=== PATIENT | female | born 1955 | race Caucasian/White ===

== ENCOUNTER → 2016-08-04 09:23 | Outpatient (CLI) | payer BC | END | disposition home or self-care (01) | LOC: D.RT 09:23 | DX: J44.9 Chronic obstructive pulmonary disease, unspecified (principal) ==

== ENCOUNTER → 2016-08-28 12:52 | Outpatient (CLI) | payer BC ==
[2016-08-28 14:11] LABS: CREATININE - SERUM 0.7 mg/dL (0.6-1.3)
== END | disposition home or self-care (01) ==
LOC: D.CT 08-21 08:30 → D.US 08-21 14:00 → D.LAB 08-21 15:45 → D.CT 12:52
PROVIDERS: Internal Medicine Pulmonary Disease
DX: R06.00 Dyspnea, unspecified (principal)

== ENCOUNTER 2018-05-06 08:00 | Outpatient (CLI) | payer BC | END 2018-05-06 09:00 | disposition home or self-care (01) | LOC: D.MAMMO 08:00 | DX: Z12.31 Encounter for screening mammogram for malignant neoplasm of breast (principal) ==

== ENCOUNTER → 2018-06-05 19:24 | Outpatient (CLI) | payer BC | END | disposition home or self-care (01) | LOC: D.MAMMO 15:00 | DX: R92.8 Other abnormal and inconclusive findings on diagnostic imaging of breast (principal) ==

== ENCOUNTER → 2018-12-11 20:28 | Outpatient (CLI) | payer BC | END | disposition home or self-care (01) | LOC: D.MAMMO 12-02 09:00 | PROVIDERS: ATTEND Family Medicine | DX: R92.8 Other abnormal and inconclusive findings on diagnostic imaging of breast (principal) ==

== ENCOUNTER → 2020-09-15 15:41 | Outpatient (CLI) | payer BC | END | disposition home or self-care (01) | LOC: D.MAMMO 10:15 | PROVIDERS: ATTEND Family Medicine | DX: Z12.31 Encounter for screening mammogram for malignant neoplasm of breast (principal) ==

== ENCOUNTER 2020-10-17 16:08 | Inpatient (IN) | payer BC ==
[~2020-10-17] VITALS: Ht 160 cm; Wt 70.3 kg
[2020-10-17] VITALS (29 sets, daily range): BP systolic 64–127; BP diastolic 37–95; BMI 29.7
[2020-10-17] MEDS ORDERED: GLUCOPHAGE500 MG PO ×2 (16:23→16:24)
[2020-10-17] MEDS ORDERED: GLIMEPIRIDE1 MG PO (16:24)
[2020-10-17] MEDS ORDERED: FARXIGA10 MG PO (16:24)
[2020-10-17] MEDS ORDERED: NORVASC10 MG PO (16:25)
[2020-10-17] MEDS ORDERED: GLIMEPIRIDE4 MG PO (16:26)
[2020-10-17 16:44] LABS: BASOPHILS 0.1 % (0-2); EOSINOPHILS 0 % (0-7); HEMATOCRIT 25.5 % (36.0-48.0); HEMOGLOBIN 7.8 g/dL (12-16); IMMATURE GRANULOCYTES 0.6 % (0-5); LYMPHOCYTE ABS# 1.29 10x3/uL (1.18-3.74); LYMPHOCYTES 14.3 % (15-50); MCH 28.3 pg (26.0-34.0); MCHC 30.6 g/dL (31.0-37.0); MCV 92.4 fL (80.0-100.0); MEAN PLATELET VOLUME 11.8 fL (7.4-10.4); NEUTROPHIL ABS# 7.58 10x3/uL (1.56-6.13); PLATELET COUNT 155 10x3/uL (130-400); RBC 2.76 10x6/uL (4.00-5.40); RDW 16.7 % (11.5-14.5)
[2020-10-17 16:54] LABS: APTT 32.1 SECONDS (22.8-39.4); INR 1.69 (0.85-1.17); PROTIME 18.5 SECONDS (11.6-15.0)
[2020-10-17 16:55] LABS: ANION GAP 28.7 mmol/L (8-16); CALCIUM 9.2 mg/dL (8.5-10.1); CARBON DIOXIDE 13.2 mmol/L (21.0-32.0); POTASSIUM - SERUM 4.9 mmol/L (3.5-5.1)
[2020-10-17 17:04] LABS: ALBUMIN 2.3 g/dL (3.4-5.0); BILIRUBIN - TOTAL 1.18 mg/dL (0.2-1.3); PROTEIN - SERUM 5.9 g/dL (6.4-8.2); TROPONIN-I 0.047 ng/mL (0.000-0.060)
--- NOTE | 2020-10-17 18:14 | NUR ---
REPORT GIVE TO GASPER EUBANKS WITH VERBAL ACKNOWLEDGEMENT OBTAINED AT THIS TIME.
--- NOTE | 2020-10-17 18:22 | NUR ---
LATE ENTRY: PT WITHIN 15 MIN OF ARRIVAL VOMITING DARK RED BLOOD 500ML. MD MADE NOTIFIED AN ORDERS WERE PLACED. LATE ENTRY: PT VOMITED A SECOND TIME AN DPUKED 200ML OF DARK RED BLOOD. MD AWARE AND MEDS WERE GIVEN.
[2020-10-18] VITALS (39 sets, daily range): BP systolic 78–131; BP diastolic 50–81; Ht 160 cm; Wt 70.3 kg
[2020-10-18 00:16] LABS: BASOPHILS 0.1 % (0-2); EOSINOPHILS 0 % (0-7); HEMATOCRIT 27.1 % (36.0-48.0); HEMOGLOBIN 8.8 g/dL (12-16); IMMATURE GRANULOCYTES 0.6 % (0-5); LYMPHOCYTE ABS# 1.57 10x3/uL (1.18-3.74); LYMPHOCYTES 16.1 % (15-50); MCH 27.4 pg (26.0-34.0); MCHC 32.5 g/dL (31.0-37.0); MCV 84.4 fL (80.0-100.0); MEAN PLATELET VOLUME 10.3 fL (7.4-10.4); MONOCYTES 11.1 % (2-11); NEUTROPHIL ABS# 7.05 10x3/uL (1.56-6.13); NEUTROPHILS 72.1 % (40-80); RBC 3.21 10x6/uL (4.00-5.40); RDW 17.4 % (11.5-14.5); WBC 9.8 10x3/uL (4.8-10.8)
[2020-10-18 00:17] LABS: PLATELET COUNT 197 10x3/uL (130-400)
[2020-10-18 04:15] LABS: BASOPHILS 0.1 % (0-2); EOSINOPHILS 0 % (0-7); HEMATOCRIT 25.3 % (36.0-48.0); HEMOGLOBIN 8.2 g/dL (12-16); IMMATURE GRANULOCYTES 0.3 % (0-5); LYMPHOCYTE ABS# 1.75 10x3/uL (1.18-3.74); LYMPHOCYTES 16.8 % (15-50); MCH 27.5 pg (26.0-34.0); MCHC 32.4 g/dL (31.0-37.0); MCV 84.9 fL (80.0-100.0); MEAN PLATELET VOLUME 10.5 fL (7.4-10.4); MONOCYTES 11.1 % (2-11); NEUTROPHIL ABS# 7.46 10x3/uL (1.56-6.13); NEUTROPHILS 71.7 % (40-80); RBC 2.98 10x6/uL (4.00-5.40); RDW 17.8 % (11.5-14.5); WBC 10.4 10x3/uL (4.8-10.8)
[2020-10-18 04:27] LABS: ALBUMIN 2.7 g/dL (3.4-5.0); ALKALINE PHOSPHATASE 86 U/L (30-120); ALT (SGPT) 82 U/L (10-68); BILIRUBIN - TOTAL 1.76 mg/dL (0.2-1.3); CALCIUM 8.9 mg/dL (8.5-10.1); CHLORIDE - SERUM 113 mmol/L (98-107); POTASSIUM - SERUM 4.2 mmol/L (3.5-5.1); SODIUM 148 mmol/L (136-145); UREA NITROGEN 34 mg/dL (7-18)
[2020-10-18 04:28] LABS: CALC OSMOLALITY 303 mosm/kg (275-300); CARBON DIOXIDE 26.9 mmol/L (21.0-32.0); CREATININE - SERUM 0.6 mg/dL (0.6-1.3); GLUCOSE 128 mg/dL (74-106); eGFR NON AFRICAN AMERICAN > 90 mL/min (90-120)
[2020-10-18 04:29] LABS: PLATELET COUNT 151 10x3/uL (130-400)
--- NOTE | 2020-10-18 07:00 | NUR ---
REPORT RECEIVED. ASSESSMENT COMPLETE PER FLOW SHEET. VSS. GI LAB AT BEDSIDE. GIVEN UDPATE.
--- NOTE | 2020-10-18 07:16 | NUR ---
DR SRINIVASAN FINISHED. NO NEW ORDERS AT THIS TIME. PT RESTING COMFORTABLY.
--- NOTE | 2020-10-18 18:00 | NUR ---
DR SRINIVASAN AT BEDSIDE GIVEN UPDATE. NO NEW ORDERS WILL CONTINUE TO MONITOR
[2020-10-18 23:32] LABS: BILIRUBIN NEGATIVE (NEGATIVE); KETONE NEGATIVE (NEGATIVE); NITRITE NEGATIVE (NEGATIVE); UROBILINOGEN 8 mg/dL (< 2)
[2020-10-18 23:35] LABS: BACTERIA MANY HPF (NONE SEEN); SQUAMOUS EPITHELIAL 0-5 HPF (0-4); WHITE CELLS - URINE 0-5 HPF (0-4)
[2020-10-19] VITALS: BP 148/83
--- NOTE | 2020-10-19 01:20 | NUR ---
PT ARRIVED ON UNIT VIA WHEELCHAIR, ESCORTED BY ICU NURSE. POSITIONED IN BED FOR COMFORT AND ORIENTED TO ROOM AND CALL LIGHT. PLACED SCD'S ON BLE PER ORDER. IV PROTONIX DRIP CONTINUES ON TRANSFER TO RIGHT WRIST. INCENTIVE INSPIROMETER PLACED AT BEDSIDE AND INSTRUCTED ON USE. TELEMETRY PLACED ON PT PER ORDER. WILL MONITOR FOR NEEDS. CALL LIGHT WITHIN REACH.
[2020-10-19 04:00] VITALS: BP 120/81
[2020-10-19 10:12] VITALS: BP 124/60
[2020-10-19 12:29] VITALS: BP 117/58
[2020-10-19 16:59] VITALS: BP 102/66
[2020-10-19 20:00] VITALS: BP 116/51
[2020-10-20] VITALS: BP 100/50
--- NOTE | 2020-10-20 03:14 | NUR ---
I have reviewed this patient and I concur with the Shift Assessment completed by the Licensed Practical Nurse today this shift.
[2020-10-20 04:00] VITALS: BP 101/52
[2020-10-20 08:25] VITALS: BP 105/47
--- NOTE | 2020-10-20 08:56 | NUR ---
PT SITTING UP IN BED EATING BREAKFAST, PT HAD SMALL BOWEL MOVEMENT THAT WAS STILL VERY DARK AND SLIGHTLY BLOODY, NO H&H DRAWN TODAY OR YESTERDAY, ABD SOUNDS ARE HYPOACTIVE X4, IV WAS REMOVED JUST BEFORE SHIFT CHANGE, NO SIGNS OF DISTRESS, NO NEEDS AT THIS TIME
--- NOTE | 2020-10-20 11:10 | NUR ---
DR EVANGELISTA IN WITH PT, GOOD TO DC ON HIS STAND POINT, FOLLOW UP IN A WEEK, PO PROTONIX AND ANTACID AT BED TIME. DR EVANGELISTA WILL PUT RECOMENDATION IN NOTE
[2020-10-20 12:58] VITALS: BP 118/79
--- NOTE | 2020-10-20 13:05 | NUR ---
CALLED DR ROWE, STATED HE DID NOT HAVE PT AND TO CALL [facility]. CALLED [facility] OFFICE, JIGNESH CURRENTLY TALKING, HE WILL BE HERE TO ROUND SOON
[2020-10-20] MEDS ORDERED: PROTONIX40 MG PO (13:17)
--- NOTE | 2020-10-20 13:25 | NUR ---
[facility]INE IN WITH PT NOW
[2020-10-20 13:55] LABS: HEMATOCRIT 20.8 % (36.0-48.0)
[2020-10-20 14:07] LABS: HEMOGLOBIN 6.9 g/dL (12-16)
--- NOTE | 2020-10-20 15:29 | NUR ---
PATIENT HG 6.9. NOTIFIED DR. ROWE NURSE AT [facility]. WILL CALL BACK WITH ORDERS. PATIENT IN BED WITH CALL LIGHT WITHIN REACH.
[2020-10-20 17:47] VITALS: BP 91/51
[2020-10-20 20:00] VITALS: BP 112/54
--- NOTE | 2020-10-21 02:58 | NUR ---
PT FINISH 2ND BLOOD BAG SHE IS FEELING OK AND VITALS ARE STABLE. PT HAS PROTONIX RUNNING WITH NS AT THE MOMENT WILL CONT TO MONITOR.
[2020-10-21 03:27] LABS: HEMATOCRIT 26.1 % (36.0-48.0); HEMOGLOBIN 8.9 g/dL (12-16)
[2020-10-21 04:00] VITALS: BP 125/57
--- NOTE | 2020-10-21 07:47 | NUR ---
PT LAYING IN BED RESTING, NO SIGNS OF DISTRESS, NO NEEDS AT THIS TIME
[2020-10-21 08:25] VITALS: BP 106/53
--- NOTE | 2020-10-21 10:51 | NUR ---
CALLED AND SPOKE WITH DR CORDOBA NURSE, INFORMED THAT PT HGB WENT UP TO 8.9 AFTER 2 UNITS OF PRBC, AWAITING ORDERS FOR PT TO DC OR HAVE ANOTHER H&H DRAWN
[2020-10-21 13:01] VITALS: BP 128/54
--- NOTE | 2020-10-21 13:01 | NUR ---
PT HAD SMALL BOWEL MOVEMENT, SIMILAR COLOR AND CONSISTENCY YESTERDAY, BLACK WITH SOME RED TINGED WATER, PT STATES SHE FEELS LIKE SHE NEEDS TO GO AGAIN, INFORMED HER NOT TO FLUSH AGAIN, PT VERBALIZED UNDERSTANDING
--- NOTE | 2020-10-21 14:18 | NUR ---
PATIENT RECIEVED DC INSTRUCTIONS. VERBALIZED UNDERSTANDING. NO QUESTIONS AT THIS TIME. IV REMOVED WITH CATH TIP INTACT. EXPLAINED TO HEEL TRIMMER MEDS AT PHARMACY. VERBALIZED UNDERSTANDING. NO QUESTIONS. CALL LIGHT WITHIN REACH. WAITING ON TRANSPORTATION.
--- NOTE | 2020-10-21 15:47 | NUR ---
PT LEFT IN STABLE CONDITION VIA WHEELCHAIR ASSISTED BY HOSPITAL STAFF, FAMILY AT SIDE, NO SIGNS OF DISTRESS
== END 2020-10-21 15:35 | disposition home or self-care (01) | DRG 378 ==
LOC: D.ER 16:08 → D.MS 17:25 → D.ICU 17:25 → D.MS 10-19 01:06
PROVIDERS: Family Medicine; Surgery; ADMIT Family Medicine; ATTEND Family Medicine
PROC: 0D9670Z Drainage of Stomach with Drainage Device, Via Natural or Artificial Opening (ICD-10-PCS; principal; 2020-10-18 07:00)
DX: K25.4 Chronic or unspecified gastric ulcer with hemorrhage (principal); D62 Acute posthemorrhagic anemia; I85.01 Esophageal varices with bleeding; E11.9 Type 2 diabetes mellitus without complications; I10 Essential (primary) hypertension; J44.9 Chronic obstructive pulmonary disease, unspecified

== ENCOUNTER 2020-10-22 22:14 | Inpatient (IN) | payer BC ==
[~2020-10-22] VITALS: Ht 160 cm; Wt 74.1 kg
[~2020-10-22 22:14] MED LIST: FARXIGA10 MG PO; GLIMEPIRIDE1 MG PO; GLIMEPIRIDE4 MG PO; GLUCOPHAGE500 MG PO; NORVASC10 MG PO; PROTONIX40 MG PO
[2020-10-22 23:00] VITALS: BP 106/43
[2020-10-22 23:16] LABS: RBC 1.82 10x6/uL (4.00-5.40); WBC 29.1 10x3/uL (4.8-10.8)
[2020-10-22 23:17] LABS: HEMATOCRIT 17.1 % (36.0-48.0); HEMOGLOBIN 5.2 g/dL (12-16); MCH 28.7 pg (26.0-34.0); MCHC 30.7 g/dL (31.0-37.0); MCV 93.6 fL (80.0-100.0); MEAN PLATELET VOLUME 10.1 fL (7.4-10.4); PLATELET COUNT 152 10x3/uL (130-400); RDW 17.4 % (11.5-14.5)
[2020-10-22 23:21] LABS: ANION GAP 22.9 mmol/L (8-16); CALCIUM 8.6 mg/dL (8.5-10.1); CREATININE - SERUM 1.3 mg/dL (0.6-1.3); POTASSIUM - SERUM 4.9 mmol/L (3.5-5.1)
[2020-10-22 23:35] LABS: BILIRUBIN - TOTAL 1.1 mg/dL (0.2-1.3); TROPONIN-I 0.028 ng/mL (0.000-0.060)
--- NOTE | 2020-10-22 23:35 | NUR ---
BLOOD CONSENT FORMS SIGNED BY PT, AWAITING CALL FROM LAB WHEN BLOOD IS READY.
[2020-10-22 23:37] LABS: LYMPHOCYTES 7 % (15-50); MONOCYTES 6 % (2-11); NEUTROPHILS 84 % (40-80); PLATELET ESTIMATE NORMAL
[2020-10-22 23:41] VITALS: BP 118/71
[2020-10-23] VITALS (22 sets, daily range): BP systolic 94–142; BP diastolic 42–63; Ht 160 cm; Wt 74.1 kg
--- NOTE | 2020-10-23 00:15 | NUR ---
FIRST UNIT OF BLOOD STARTED AT THIS TIME.
--- NOTE | 2020-10-23 01:50 | NUR ---
FIRST UNIT PRBC FINISHED AT THIS TIME. RESPIRATIONS EVEN NON LABORED, PT AFEBRILE, DENIES PAIN. REMAINS ON ACCOUNTING METHODS ANALYST, SINUS TACHYCARDIA.
[2020-10-23 02:16] LABS: BILIRUBIN NEGATIVE (NEGATIVE); KETONE NEGATIVE (NEGATIVE); NITRITE NEGATIVE (NEGATIVE); UROBILINOGEN NORMAL mg/dL (< 2)
--- NOTE | 2020-10-23 02:25 | NUR ---
REPORT GIVEN TO CHA ZACARIAS AT THIS TIME STATES WAITING ON NURSE TO BE CALLED IN TO TAKE PT.
--- NOTE | 2020-10-23 03:16 | NUR ---
PT'S SECOND UNIT OF BLOOD FINISHED AT THIS TIME.
[2020-10-23] MEDS ORDERED: SINGULAIR10 MG PO (04:34)
[2020-10-23 08:22] LABS: BASOPHILS 0.1 % (0-2); EOSINOPHILS 0 % (0-7); LYMPHOCYTES 8.4 % (15-50); MCH 28.7 pg (26.0-34.0); MCHC 32.8 g/dL (31.0-37.0); MEAN PLATELET VOLUME 9.2 fL (7.4-10.4); MONOCYTES 8.6 % (2-11); NEUTROPHILS 82.9 % (40-80); RDW 16.3 % (11.5-14.5); WBC 17.5 10x3/uL (4.8-10.8)
[2020-10-23 08:23] LABS: RBC 2.45 10x6/uL (4.00-5.40)
[2020-10-23 08:33] LABS: HEMATOCRIT 21.4 % (36.0-48.0); MCV 87.6 fL (80.0-100.0); PLATELET COUNT 80 10x3/uL (130-400)
[2020-10-23 08:35] LABS: ANION GAP 13.2 mmol/L (8-16); CALCIUM 8.1 mg/dL (8.5-10.1); POTASSIUM - SERUM 4.4 mmol/L (3.5-5.1)
[2020-10-23 08:39] LABS: CARBON DIOXIDE 21.2 mmol/L (21.0-32.0); CREATININE - SERUM 0.9 mg/dL (0.6-1.3)
--- NOTE | 2020-10-23 08:39 | NUR ---
SPOKE WITH DR MIR AT THIS TIME, UPDATES PROVIDED. NOTED PER SHIFT REPORT THERE HAS BEEN NO ACTIVE BLEEDING OR BLACK STOOLS NOTED SINCE ARRIVED TO ICU. HER HGB THIS MORNING IS 7. PER DR MIR ORDERS WILL ADMIN 2 U PRBC. WILL CONTINUE TO CLOSELY OBSERVE.
[2020-10-23 09:05] LABS: PLATELET ESTIMATE NORMAL
--- NOTE | 2020-10-23 10:10 | NUR ---
CONTINENT BOWEL MOVEMENT NOTED AT THIS TIME, LARGE LIQUID BLACK STOOL APPROX 450 ML. DICK CARE PROVIDED AT THIS TIME. PT CURRENTLY RECIEVING PRBC WITH AN ORDER TO RECIEVE A TOTAL OF 2 U PRBC. VSS. WILL CONTINUE TO CLOSELY OBSERVE.
--- NOTE | 2020-10-23 13:48 | NUR ---
CURRENTLY RECIEVING 2ND UNIT OF PRBC, TOLERATING WELL. NO ACUTE DISTRESS NOTED. WILL CONTINUE PLAN OF CARE.
--- NOTE | 2020-10-23 15:17 | NUR ---
BLACK STOOL NOTED APPROX 600ML LIQUID STOOL AT THIS TIME. DICK CARE PROVIDED. AFTER PT CLEANED UP SHE THEN STATED SHE NEEDED TO GO AGAIN. BEDPAN PROVIDED. DR MIR IS PAGED. WAITING FOR CALLBACK.
--- NOTE | 2020-10-23 15:55 | NUR ---
DR MIR UPDATED REGARDING PT STATUS. NO NEW ORDERS RECIEVED.
[2020-10-23 16:03] LABS: HEMOGLOBIN 9.4 g/dL (12-16)
--- NOTE | 2020-10-23 18:01 | NUR ---
SITTING UP IN BED WATCHING TV AT THIS TIME. VSS. NO ACUTE DISTRESS NOTED. DENIES ANY NEEDS. WILL CONTINUE PLAN OF CARE.
[2020-10-23 23:16] LABS: HEMATOCRIT 26.6 % (36.0-48.0); HEMOGLOBIN 8.7 g/dL (12-16)
[2020-10-24] VITALS (25 sets, daily range): BP systolic 113–162; BP diastolic 30–84
--- NOTE | 2020-10-24 00:29 | NUR ---
PT H&H REPORTED TO DR MIR. NEW ORDER OF 2 UNITS OF BLOOD RECEIVED AND ADMINISTERED.
[2020-10-24 04:40] LABS: BASOPHILS 0.2 % (0-2); EOSINOPHILS 0.6 % (0-7); LYMPHOCYTES 14.2 % (15-50); MCH 29.5 pg (26.0-34.0); MCHC 33.6 g/dL (31.0-37.0); MCV 87.7 fL (80.0-100.0); MEAN PLATELET VOLUME 9.3 fL (7.4-10.4); MONOCYTES 11.2 % (2-11); NEUTROPHILS 73.8 % (40-80); PLATELET COUNT 70 10x3/uL (130-400); RDW 15.6 % (11.5-14.5)
[2020-10-24 04:48] LABS: HEMATOCRIT 34.6 % (36.0-48.0); HEMOGLOBIN 11.6 g/dL (12-16); RBC 3.95 10x6/uL (4.00-5.40); WBC 12.4 10x3/uL (4.8-10.8)
[2020-10-24 04:53] LABS: CALCIUM 7.5 mg/dL (8.5-10.1); CARBON DIOXIDE 21.2 mmol/L (21.0-32.0); CHLORIDE - SERUM 113 mmol/L (98-107); POTASSIUM - SERUM 4.2 mmol/L (3.5-5.1); SODIUM 141 mmol/L (136-145)
[2020-10-24 04:55] LABS: CALC OSMOLALITY 289 mosm/kg (275-300); CREATININE - SERUM 0.6 mg/dL (0.6-1.3); GLUCOSE 140 mg/dL (74-106); UREA NITROGEN 31 mg/dL (7-18); eGFR NON AFRICAN AMERICAN > 90 mL/min (90-120)
--- NOTE | 2020-10-24 07:57 | HP ---
PATIENT: TONYA EASTON MEDICAL RECORD: [id number] ACCOUNT: [id number] LOCATION:[facility] D.[id number] : 57 ADMISSION DATE: 10/23/20 PCP: CELESTE RIOJAS HISTORY AND PHYSICAL EXAMINATION REASON FOR ADMISSION: Rectal bleeding and dizziness. HISTORY OF PRESENT ILLNESS: The patient is a 65-year-old female, who was discharged approximately 2 days ago after an episode of hematemesis, symptomatic anemia from GI bleed and gastric ulcer and esophageal varices. The patient said she was still having dark stools when she left, but no abdominal pain. She passed a hard stool last evening and had large bloody stool and felt lightheaded. She does not remember coming to the ER. Her family called EMS. She was brought to the ED where she was mildly hypotensive. Hemoglobin was 5.6. She was therefore admitted to the ICU after consultation with GI and Surgery. PAST MEDICAL HISTORY: Gastric ulcer with esophageal varices noted a week ago, discharged 10/21/2020; anemia of acute GI blood loss; COPD, quit smoking today; AODM; essential hypertension; fatty liver. PAST SURGICAL HISTORY: Had hysterectomy due to fibroids at a young age. She is a 0. FAMILY HISTORY: Hypertension in her father. SOCIAL HISTORY: Her 3 years ago, but she has a brother living locally who helps with her. She is on her 's SSI currently. She says she drinks alcohol rarely, smoked for 40 years and quit. No recreational drug use. No previous history of liver disease to her knowledge, except for fatty liver. HOME MEDICATIONS: Amlodipine 10 mg a day, montelukast 10 mg with the evening meal, Protonix 40 mg b.i.d., Farxiga 10 mg daily, Amaryl 4 mg with breakfast, metformin 1000 mg b.i.d. ALLERGIES: None known. REVIEW OF SYSTEMS: GENERAL: She has been fatigued. HEENT: No recent visual change, sinus congestion, sore throat. RESPIRATORY: No shortness of breath at rest, but some on exertion. No cough or sputum production. CARDIAC: No exertional chest pain, claudication, or edema. Has mild BARRETT. GASTROINTESTINAL: As above. No vomiting, nausea, abdominal pain. Just jn melanotic bloody stool. GYNECOLOGIC: No vaginal bleeding. GENITOURINARY: No incontinence or dysuria. MUSCULOSKELETAL: Denies arthralgias. NEUROLOGIC: No history of stroke, TIA, vascular headaches, memory loss or seizures. PSYCHIATRIC: Denies depressed mood. PHYSICAL EXAMINATION: GENERAL: A 65-year-old pleasant female at this time in no acute distress, but pale appearing. HISTORY AND PHYSICAL [id number] TONYA EASTON VITAL SIGNS: Blood pressure 94/42, sat of 90% on room air, heart rate 97, temperature 98.1. HEENT: Normocephalic. Eyes are clear, but pale palpebral conjunctivae. Oropharynx unremarkable. NECK: Supple. CHEST: Clear. HEART: Tachycardic without murmur. ABDOMEN: Soft, nontender throughout. Bowel sounds are active. RECTAL: No marked hemorrhoids appreciated. EXTREMITIES: No CCE. SKIN: Pale. No petechiae. LABORATORY DATA: Lab on admission showed a white count of 21.9, now 17.5; H&H of 5.2 and 17.1, post transfusion are 7 and 21.4; platelet count is 80,000. BUN and creatinine are 40 and 1.3. AST and ALT are elevated chronically at 63 and 76, alkaline phosphatase normal at 80. Urine shows 5-10 red cells, 2+ blood, negative nitrite. Chest x-ray shows no acute cardiopulmonary disease. ASSESSMENT: 1. Gastrointestinal bleed with symptomatic anemia. 2. Hypotension. 3. Leukocytosis, etiology unknown. 4. Thrombocytopenia. 5. Recent gastric ulcer, esophageal varices, possible cirrhosis based on previous CT scan, non-alcoholic steatohepatitis, hypertension. PLAN: The patient was transfused 2 units, will receive 2 more now. GI has been consulted and will see this morning. We will transfuse 2 more units of packed cells. Hold antihypertensives. Etiology of her leukocytosis is not known. If it continues to trend downward, we will not begin antibiotics. TRANSINT:[id number] Voice Confirmation ID: [id number] DOCUMENT ID: [id number] MELVA JEFFERSON MD at 0757 CC: [id number] DICTATION DATE: 10/23/2035 SECONDARY ART TEACHER: 10/23/20 0939 ADM IN [place] [id number] [place] [address]
--- NOTE | 2020-10-24 11:54 | NUR ---
CONTINENT VOID NOTED AT THIS TIME VIA BEDPAN X 2. PT PROVIDED OWN DICK CARE. VSS. NO ACUTE DISTRESS NOTED. WILL CONTINUE PLAN OF CARE.
--- NOTE | 2020-10-24 14:32 | NUR ---
LYING IN BED RESTING AT THIS TIME. VSS. NOTED NO ACUTE DISTRESS NOTED. CALL LIGHT IN REACH. AWAKENS EASILY WHEN SPOKEN TO. PT REPOSITIONS SELF INDEPENDENTLY IN BED. WILL CONTINUE PLAN OF CARE.
[2020-10-24 14:54] LABS: HEMATOCRIT 35.4 % (36.0-48.0); HEMOGLOBIN 11.8 g/dL (12-16)
[2020-10-24 22:55] LABS: HEMOGLOBIN 11.5 g/dL (12-16)
[2020-10-25] VITALS (16 sets, daily range): BP systolic 127–164; BP diastolic 58–95
[2020-10-25 05:04] LABS: BASOPHILS 0.3 % (0-2); HEMATOCRIT 35.7 % (36.0-48.0); LYMPHOCYTES 18.3 % (15-50); MCH 29.9 pg (26.0-34.0); MCHC 33.7 g/dL (31.0-37.0); MCV 88.6 fL (80.0-100.0); MEAN PLATELET VOLUME 9.2 fL (7.4-10.4); MONOCYTES 10.6 % (2-11); NEUTROPHILS 69.8 % (40-80); PLATELET COUNT 65 10x3/uL (130-400); RBC 4.03 10x6/uL (4.00-5.40); RDW 16.3 % (11.5-14.5)
[2020-10-25 05:16] LABS: CALC OSMOLALITY 280 mosm/kg (275-300); CALCIUM 7.5 mg/dL (8.5-10.1); CARBON DIOXIDE 21.9 mmol/L (21.0-32.0); CHLORIDE - SERUM 109 mmol/L (98-107); CREATININE - SERUM 0.5 mg/dL (0.6-1.3); GLUCOSE 137 mg/dL (74-106); PLATELET ESTIMATE DECREASED; SODIUM 139 mmol/L (136-145); WBC 7.8 10x3/uL (4.8-10.8); eGFR NON AFRICAN AMERICAN > 90 mL/min (90-120)
[2020-10-25 05:29] LABS: UREA NITROGEN 14 mg/dL (7-18)
--- NOTE | 2020-10-25 12:58 | NUR ---
Nutrition follow-up: Pt continues with clear liquid diet Labs reviewed +BM loose Wt: 164# Will need to begin nutrition support within 24 hours if po diet unable to advance past clear liquids. Recommend ProcalAmine PPN @ 75 ml/hr for short-term nutrition suport. RDN follow-up: 10/28/20
[2020-10-25 14:06] LABS: HEMATOCRIT 37.2 % (36.0-48.0); HEMOGLOBIN 12.3 g/dL (12-16)
[2020-10-25 22:41] LABS: HEMATOCRIT 35.8 % (36.0-48.0); HEMOGLOBIN 11.9 g/dL (12-16)
[2020-10-26] VITALS: BP 157/61
[2020-10-26 04:00] VITALS: BP 158/65
[2020-10-26 09:12] VITALS: BP 134/60
[2020-10-26 11:52] VITALS: BP 120/50
[2020-10-26 17:34] VITALS: BP 143/59
--- NOTE | 2020-10-26 19:45 | NUR ---
RECEIVED BEDSIDE REPORT. PT LAYING IN BED A&O X4. PIV TO LEFT HAND PATENT AND INFUSING, NO REDNESS OR SWELLING. TELEMETRY IN PLACE, 78 SR. PT ABLE TO AMBULATE AD FRAN. EDUCATED PT ON CL AND NEEDS, VERBALIZED UNDERSTANDING. BED LOW, CL IN REACH.
[2020-10-26 20:00] VITALS: BP 142/54
[2020-10-27] VITALS: BP 127/63
[2020-10-27 04:00] VITALS: BP 144/64
--- NOTE | 2020-10-27 07:37 | NUR ---
RECIEVED BEDSIDE REPORT. IV INFUSING PER MAR. BED LOW POSITION, CALL LIGHT IN REACH. DENIES NEEDS AT THIS TIME. FREE FROM SIGNS OF DISTRESS. WILL CONTINUE TO MONITOR.
[2020-10-27 07:52] LABS: BASOPHILS 0.2 % (0-2); CALC OSMOLALITY 280 mosm/kg (275-300); CALCIUM 7.7 mg/dL (8.5-10.1); CARBON DIOXIDE 27.3 mmol/L (21.0-32.0); CHLORIDE - SERUM 107 mmol/L (98-107); CREATININE - SERUM 0.5 mg/dL (0.6-1.3); EOSINOPHILS 1.4 % (0-7); GLUCOSE 127 mg/dL (74-106); HEMOGLOBIN 12.7 g/dL (12-16); LYMPHOCYTES 20.1 % (15-50); MCH 29.4 pg (26.0-34.0); MCHC 33.4 g/dL (31.0-37.0); MEAN PLATELET VOLUME 8.9 fL (7.4-10.4); MONOCYTES 11.2 % (2-11); NEUTROPHILS 67.1 % (40-80); PLATELET COUNT 72 10x3/uL (130-400); POTASSIUM - SERUM 3.5 mmol/L (3.5-5.1); RBC 4.32 10x6/uL (4.00-5.40); SODIUM 141 mmol/L (136-145); UREA NITROGEN 7 mg/dL (7-18); WBC 3.8 10x3/uL (4.8-10.8); eGFR NON AFRICAN AMERICAN > 90 mL/min (90-120)
[2020-10-27 09:26] VITALS: BP 155/68
[2020-10-27 14:41] VITALS: BP 138/51
[2020-10-27] MEDS ORDERED: PROPRANOLOL HCL20 MG PO (14:58)
--- NOTE | 2020-10-27 16:53 | NUR ---
DISCHARGE TEACHING COMPLETE. IV CATH REMOVED, CATH TIP INTACT. DENIES FURTHER QUESTIONS. WAITING ON RIDE TO ARRIVE FOR DISCHARGE.
--- NOTE | 2020-10-27 17:47 | NUR ---
LEFT UNIT VIA WHEELCHAIR TO HOME AT THIS TIME.
== END 2020-10-27 17:48 | disposition home or self-care (01) | DRG 432 ==
LOC: D.ER 22:14 → D.EDHOLD 23:57 → D.ER 10-23 00:01 → D.EDHOLD 10-23 00:01 → D.ICU 10-23 00:01 → D.EDHOLD 10-23 01:35 → D.ICU 10-23 01:35 → D.MS 10-25 19:49
PROVIDERS: Family Medicine; Student in an Organized Health Care Education/Training Program; Surgery; ADMIT Family Medicine; ATTEND Family Medicine
DX: K70.30 Alcoholic cirrhosis of liver without ascites (principal); I85.11 Secondary esophageal varices with bleeding; K25.4 Chronic or unspecified gastric ulcer with hemorrhage; D50.0 Iron deficiency anemia secondary to blood loss (chronic); E11.9 Type 2 diabetes mellitus without complications; D47.3 Essential (hemorrhagic) thrombocythemia

== ENCOUNTER 2020-11-06 17:23 | Inpatient (IN) | payer BC ==
[~2020-11-06] VITALS: Ht 160 cm; Wt 70.3 kg
[2020-11-06] VITALS (9 sets, daily range): BP systolic 89–127; BP diastolic 37–55
[~2020-11-06 17:23] MED LIST changes: +PROPRANOLOL HCL20 MG PO; +SINGULAIR10 MG PO
[2020-11-06 18:03] LABS: BASOPHILS 0.2 % (0-2); MCHC 32.2 g/dL (31.0-37.0); MCV 92.4 fL (80.0-100.0)
[2020-11-06 18:05] LABS: EOSINOPHILS 1.4 % (0-7); MCH 29.8 pg (26.0-34.0); MEAN PLATELET VOLUME 9.2 fL (7.4-10.4); NEUTROPHILS 71.4 % (40-80); RDW 18.6 % (11.5-14.5); WBC 6.6 10x3/uL (4.8-10.8)
[2020-11-06 18:11] LABS: INR 1.55 (0.85-1.17); PROTIME 17.2 SECONDS (11.6-15.0)
[2020-11-06 18:13] LABS: CALC OSMOLALITY 281 mosm/kg (275-300); CALCIUM 7.8 mg/dL (8.5-10.1); CARBON DIOXIDE 20.4 mmol/L (21.0-32.0); CHLORIDE - SERUM 109 mmol/L (98-107); CREATININE - SERUM 0.7 mg/dL (0.6-1.3); GLUCOSE 129 mg/dL (74-106); POTASSIUM - SERUM 4.6 mmol/L (3.5-5.1); SODIUM 140 mmol/L (136-145); UREA NITROGEN 15 mg/dL (7-18); eGFR NON AFRICAN AMERICAN 90 mL/min (90-120)
[2020-11-06 18:18] LABS: ALBUMIN 1.6 g/dL (3.4-5.0); ALKALINE PHOSPHATASE 87 U/L (30-120); ALT (SGPT) 68 U/L (10-68); BILIRUBIN - TOTAL 0.55 mg/dL (0.2-1.3)
[2020-11-06 18:24] LABS: HEMATOCRIT 18.5 % (36.0-48.0)
[2020-11-06 18:25] LABS: PLATELET COUNT 148 10x3/uL (130-400)
--- NOTE | 2020-11-06 23:30 | NUR ---
ASSISTED PT TO BSC. PT HAD MODERATE AMOUNT OF DARK TARRY STOOL.
[2020-11-07] VITALS (14 sets, daily range): BP systolic 110–163; BP diastolic 46–77; BMI 27.5
--- NOTE | 2020-11-07 01:30 | NUR ---
ASSISTED PT TO BSC. PT HAD MODERATE AMOUNT OF TARRY STOOL.
--- NOTE | 2020-11-07 05:00 | NUR ---
ASSISTED PT TO BSC. PT HAD MODERATE AMOUNT OF TARRY STOOL.
[2020-11-07 07:27] LABS: BASOPHILS 0.1 % (0-2)
[2020-11-07 07:30] LABS: EOSINOPHILS 0.6 % (0-7); HEMATOCRIT 21.6 % (36.0-48.0); LYMPHOCYTES 25.7 % (15-50); MCH 29.4 pg (26.0-34.0); MCHC 33.6 g/dL (31.0-37.0); MEAN PLATELET VOLUME 8.2 fL (7.4-10.4); MONOCYTES 12.7 % (2-11); NEUTROPHILS 60.9 % (40-80); PLATELET COUNT 143 10x3/uL (130-400); RDW 16.3 % (11.5-14.5)
[2020-11-07 07:34] LABS: RBC 2.47 10x6/uL (4.00-5.40); WBC 4.8 10x3/uL (4.8-10.8)
[2020-11-07 07:39] LABS: HEMOGLOBIN 7.3 g/dL (12-16); MCV 87.4 fL (80.0-100.0)
[2020-11-07 07:40] LABS: ALKALINE PHOSPHATASE 87 U/L (30-120); ALT (SGPT) 66 U/L (10-68); CALCIUM 8.5 mg/dL (8.5-10.1); CHLORIDE - SERUM 111 mmol/L (98-107); GLUCOSE 107 mg/dL (74-106); POTASSIUM - SERUM 4.3 mmol/L (3.5-5.1); SODIUM 142 mmol/L (136-145)
[2020-11-07 07:47] LABS: ALBUMIN 2.3 g/dL (3.4-5.0); CALC OSMOLALITY 287 mosm/kg (275-300); CARBON DIOXIDE 25.9 mmol/L (21.0-32.0); CREATININE - SERUM 0.5 mg/dL (0.6-1.3); UREA NITROGEN 27 mg/dL (7-18); eGFR NON AFRICAN AMERICAN > 90 mL/min (90-120)
--- NOTE | 2020-11-07 07:47 | NUR ---
DR. RIOJAS NOTIFIED OF CRITICAL HGB OF 7.3. ORDERS RECEIVED.
--- NOTE | 2020-11-07 12:01 | NUR ---
FIRST UNIT OF PRBC HUNG TO INFUSE VIA PUMP. PATIENT ASSISTED TO CHANGE ADULT BRIEF WITH LIQUID BLACK STOOL. TO BSC TO EXPELL ADDITIONAL STOOL. PARTIAL BATH WITH PERINEAL CARE PROVIDED.
--- NOTE | 2020-11-07 16:00 | NUR ---
FIRST UNIT PRBC COMPLETE. VSS.
--- NOTE | 2020-11-07 16:46 | NUR ---
REPORT CALLED TO AIME IN ICU. AIME WILL CALL DR. RIOJAS TO CONFIRM NEED FOR ICU PLACEMENT.
--- NOTE | 2020-11-07 19:50 | NUR ---
INFUSION COMPLETE AT THIS TIME.
[2020-11-07 21:42] LABS: HEMATOCRIT 30.4 % (36.0-48.0); HEMOGLOBIN 10.3 g/dL (12-16)
[2020-11-08] VITALS (12 sets, daily range): BP systolic 109–153; BP diastolic 54–90; Ht 160 cm; Wt 70.3 kg
[2020-11-08 06:28] LABS: BASOPHILS 0.3 % (0-2); EOSINOPHILS 1.5 % (0-7); HEMATOCRIT 29.9 % (36.0-48.0); HEMOGLOBIN 10.2 g/dL (12-16); LYMPHOCYTES 20.5 % (15-50); MCH 28.9 pg (26.0-34.0); MCHC 34.1 g/dL (31.0-37.0); MEAN PLATELET VOLUME 8.2 fL (7.4-10.4); MONOCYTES 11.2 % (2-11); NEUTROPHILS 66.5 % (40-80); PLATELET COUNT 117 10x3/uL (130-400)
[2020-11-08 07:19] LABS: CALC OSMOLALITY 283 mosm/kg (275-300); CALCIUM 8.5 mg/dL (8.5-10.1); CARBON DIOXIDE 26.3 mmol/L (21.0-32.0); CHLORIDE - SERUM 109 mmol/L (98-107); CREATININE - SERUM 0.5 mg/dL (0.6-1.3); GLUCOSE 97 mg/dL (74-106); POTASSIUM - SERUM 3.7 mmol/L (3.5-5.1); SODIUM 143 mmol/L (136-145); UREA NITROGEN 11 mg/dL (7-18); eGFR NON AFRICAN AMERICAN > 90 mL/min (90-120)
[2020-11-08 07:21] LABS: MCV 84.9 fL (80.0-100.0); RBC 3.52 10x6/uL (4.00-5.40)
--- NOTE | 2020-11-08 07:30 | NUR ---
PT ALERT AND ORIENTED ON PHONE. NO NEEDS AT THIS TIME. TM
--- NOTE | 2020-11-08 11:13 | NUR ---
PT AWAITING EGD. CL IN REACH. NO FURTHER NEEDS AT THIS TIME. WCTM
--- NOTE | 2020-11-08 18:22 | NUR ---
ATTEMPTING TO CALL GI ABOUT PT GOING TO GET AHOLD OF GI TO SEE IF PT IS STILL GOING TO HAVE AN EGD DONE.
--- NOTE | 2020-11-08 18:56 | NUR ---
PT TO EGD
[2020-11-09] VITALS (7 sets, daily range): BP systolic 92–158; BP diastolic 53–79
[2020-11-09 05:52] LABS: BASOPHILS 0.2 % (0-2); EOSINOPHILS 1.1 % (0-7); HEMATOCRIT 28.2 % (36.0-48.0); HEMOGLOBIN 9.7 g/dL (12-16); LYMPHOCYTES 19.3 % (15-50); MCH 29.5 pg (26.0-34.0); MCHC 34.5 g/dL (31.0-37.0); MCV 85.5 fL (80.0-100.0); MEAN PLATELET VOLUME 8.5 fL (7.4-10.4); MONOCYTES 14.1 % (2-11); NEUTROPHILS 65.3 % (40-80); PLATELET COUNT 104 10x3/uL (130-400); RDW 16.6 % (11.5-14.5)
[2020-11-09 06:14] LABS: CALCIUM 8.1 mg/dL (8.5-10.1); CARBON DIOXIDE 24.4 mmol/L (21.0-32.0); CHLORIDE - SERUM 107 mmol/L (98-107); CREATININE - SERUM 0.6 mg/dL (0.6-1.3); POTASSIUM - SERUM 3.6 mmol/L (3.5-5.1); SODIUM 140 mmol/L (136-145); eGFR NON AFRICAN AMERICAN > 90 mL/min (90-120)
[2020-11-09 06:15] LABS: CALC OSMOLALITY 283 mosm/kg (275-300); GLUCOSE 220 mg/dL (74-106); UREA NITROGEN 7 mg/dL (7-18)
--- NOTE | 2020-11-09 09:52 | NUR ---
PATIENT BP RECHECKED. 93/45. WILL HOLD INDERAL FOR NOW. IV INTACT. NO COMPLAINTS. CALL LIGHT WITHIN REACH.
--- NOTE | 2020-11-09 18:45 | NUR ---
PATIENT IN BED WITH IV INTACT. NO COMPLAINTS OR SIGNS OF DISTRESS. VS STABLE. CPM ON. WILL COME OFF AT 2114. CALL LIGHT WITHIN REACH.
[2020-11-10 04:00] VITALS: BP 128/57
[2020-11-10 06:17] LABS: BASOPHILS 0.2 % (0-2); EOSINOPHILS 0.9 % (0-7); HEMATOCRIT 24.7 % (36.0-48.0); HEMOGLOBIN 8.2 g/dL (12-16); LYMPHOCYTES 24.1 % (15-50); MCH 28.8 pg (26.0-34.0); MCHC 33.4 g/dL (31.0-37.0); MCV 86.4 fL (80.0-100.0); MEAN PLATELET VOLUME 8.7 fL (7.4-10.4); MONOCYTES 13.6 % (2-11); NEUTROPHILS 61.2 % (40-80); PLATELET COUNT 100 10x3/uL (130-400); RBC 2.86 10x6/uL (4.00-5.40); RDW 16.5 % (11.5-14.5); WBC 3.7 10x3/uL (4.8-10.8)
[2020-11-10 06:30] LABS: CALC OSMOLALITY 282 mosm/kg (275-300); CARBON DIOXIDE 26.1 mmol/L (21.0-32.0); CHLORIDE - SERUM 109 mmol/L (98-107); CREATININE - SERUM 0.5 mg/dL (0.6-1.3); GLUCOSE 130 mg/dL (74-106); POTASSIUM - SERUM 3.4 mmol/L (3.5-5.1); SODIUM 141 mmol/L (136-145); UREA NITROGEN 13 mg/dL (7-18); eGFR NON AFRICAN AMERICAN > 90 mL/min (90-120)
--- NOTE | 2020-11-10 07:31 | NUR ---
patient sitting up in bed awake and alert, call light in reach, no signs or symptoms of distress, no neds voiced, continue with plan of care
[2020-11-10 08:57] VITALS: BP 128/54
[2020-11-10 12:22] VITALS: BP 149/64
--- NOTE | 2020-11-10 14:20 | NUR ---
I have reviewed this patient and I concur with the Shift Assessment completed by the Licensed Practical Nurse today this shift.
[2020-11-10 17:08] VITALS: BP 145/83
[2020-11-10 20:00] VITALS: BP 127/58
[2020-11-11 00:19] VITALS: BP 131/68
[2020-11-11 03:42] VITALS: BP 115/64
--- NOTE | 2020-11-11 05:11 | NUR ---
I have reviewed this patient and I concur with the Shift Assessment completed by the Licensed Practical Nurse today this shift.
[2020-11-11 06:23] LABS: BASOPHILS 0.2 % (0-2); EOSINOPHILS 1.3 % (0-7); HEMATOCRIT 23.8 % (36.0-48.0); LYMPHOCYTES 32.8 % (15-50); MCH 29.1 pg (26.0-34.0); MCHC 33.5 g/dL (31.0-37.0); MCV 86.9 fL (80.0-100.0); MONOCYTES 13.7 % (2-11); PLATELET COUNT 92 10x3/uL (130-400); RBC 2.74 10x6/uL (4.00-5.40); RDW 16.5 % (11.5-14.5); WBC 3.3 10x3/uL (4.8-10.8)
[2020-11-11 06:32] LABS: CALC OSMOLALITY 281 mosm/kg (275-300); CALCIUM 7.8 mg/dL (8.5-10.1); CARBON DIOXIDE 25.8 mmol/L (21.0-32.0); CHLORIDE - SERUM 109 mmol/L (98-107); CREATININE - SERUM 0.5 mg/dL (0.6-1.3); GLUCOSE 126 mg/dL (74-106); POTASSIUM - SERUM 3.4 mmol/L (3.5-5.1); SODIUM 141 mmol/L (136-145); UREA NITROGEN 9 mg/dL (7-18); eGFR NON AFRICAN AMERICAN > 90 mL/min (90-120)
[2020-11-11 07:00] LABS: PLATELET ESTIMATE NORMAL
--- NOTE | 2020-11-11 08:36 | NUR ---
AWAKE AND ALERT. ORIENTED X3. NO C/O AT THIS TIME. LUNGS ARE CLEAR BILATERALLY, NO COUGH NOTED. SKIN IS INTACT WITHOUT REDNESS. IV RESITED TO LEFT FOREARM AFTER ONE ATTEMPT WITH 20G. OLD IV TO LEFT FOREARM D/C WITH CATHETER INTACT. WARM PACK APPLIED TO AREA. DENIES NEEDS.
[2020-11-11 10:13] VITALS: BP 139/59
--- NOTE | 2020-11-11 12:30 | NUR ---
ATE MOST OF FL LUNCH. DENIES NEEDS.
[2020-11-11 13:10] VITALS: BP 133/53
--- NOTE | 2020-11-11 15:00 | NUR ---
RESTING QUIETLY IN BED. NO NEEDS NOTED.
--- NOTE | 2020-11-11 15:13 | NUR ---
Nutrition follow-up: Diet advanced to consistent CHO mechanical soft today No po intake recorded today Labs reviewed Wt: 155# Will provide food choices with selective menus and honor food preferences within diet restrictions and modifications. RDN will follow-up on pts progress toward nutrition goals in 3-5 days.
--- NOTE | 2020-11-11 19:00 | NUR ---
ATE MOST OF FL SUPPER. STAFF UNAWARE OF DIET CHANGE. DISCUSSED WITH PATIENT AND APPOLOGIZED FOR NOT CHANGEING HER DIET. DENIES NEEDS. NO CHANGES NOTED.
--- NOTE | 2020-11-11 19:30 | NUR ---
PT IN BED, AAO X 4, RESP EVEN AND UNLABORED, NO DISTRESS NOTED, CL IN REACH, SR UP X 2.
[2020-11-11 20:00] VITALS: BP 145/52
[2020-11-12] VITALS: BP 146/57
[2020-11-12 04:00] VITALS: BP 150/51
--- NOTE | 2020-11-12 04:55 | NUR ---
I have reviewed this patient and I concur with the Shift Assessment completed by the Licensed Practical Nurse today this shift.
[2020-11-12 06:50] LABS: HEMATOCRIT 25.5 % (36.0-48.0); HEMOGLOBIN 8.3 g/dL (12-16); MCH 28.3 pg (26.0-34.0); MCHC 32.5 g/dL (31.0-37.0); MCV 87.2 fL (80.0-100.0); MEAN PLATELET VOLUME 9.2 fL (7.4-10.4); PLATELET COUNT 94 10x3/uL (130-400); RBC 2.92 10x6/uL (4.00-5.40); RDW 16.8 % (11.5-14.5); WBC 2.7 10x3/uL (4.8-10.8)
[2020-11-12 07:06] LABS: CALC OSMOLALITY 279 mosm/kg (275-300); CALCIUM 7.9 mg/dL (8.5-10.1); CARBON DIOXIDE 26.3 mmol/L (21.0-32.0); CHLORIDE - SERUM 110 mmol/L (98-107); CREATININE - SERUM 0.5 mg/dL (0.6-1.3); GLUCOSE 129 mg/dL (74-106); POTASSIUM - SERUM 3.5 mmol/L (3.5-5.1); SODIUM 141 mmol/L (136-145); UREA NITROGEN 4 mg/dL (7-18); eGFR NON AFRICAN AMERICAN > 90 mL/min (90-120)
--- NOTE | 2020-11-12 08:41 | NUR ---
PT LYING IN BED. IV CDI, RR EVEN NONLABORED. ALL NEEDS MET AT THIS TIME. CLWR.
[2020-11-12 08:43] LABS: EOSINOPHILS 2 % (0-7); LYMPHOCYTES 32 % (15-50); MONOCYTES 3 % (2-11); NEUTROPHILS 63 % (40-80); PLATELET ESTIMATE DECREASED
[2020-11-12 08:44] LABS: ANISOCYTOSIS OCC; BURR CELLS OCC; TEAR DROP CELLS OCC
[2020-11-12 09:51] VITALS: BP 145/56
[2020-11-12 12:51] VITALS: BP 155/56
[2020-11-12] MEDS ORDERED: NORVASC5 MG PO (13:16)
== END 2020-11-12 16:26 | disposition home or self-care (01) | DRG 432 ==
LOC: D.ER 17:23 → D.EDHOLD 18:02 → D.MS 18:02 → D.ICU 11-07 15:37 → D.EDHOLD 11-07 17:40 → D.MS 11-07 20:50
PROVIDERS: Family Medicine; Surgery; ADMIT Family Medicine; ATTEND Family Medicine
PROC: 0DJ08ZZ Inspection of Upper Intestinal Tract, Via Natural or Artificial Opening Endoscopic (ICD-10-PCS; principal; 2020-11-08 18:59)
DX: K70.30 Alcoholic cirrhosis of liver without ascites (principal); I85.11 Secondary esophageal varices with bleeding; K25.4 Chronic or unspecified gastric ulcer with hemorrhage; K76.6 Portal hypertension; E11.9 Type 2 diabetes mellitus without complications; J44.9 Chronic obstructive pulmonary disease, unspecified; I10 Essential (primary) hypertension; D50.0 Iron deficiency anemia secondary to blood loss (chronic); R55 Syncope and collapse